=== PATIENT | female | born 1940 | race Caucasian/White ===

== ENCOUNTER 2024-09-26 05:52 | Inpatient (IN) | payer MEDICARE, OTHER ==
[2024-09-26] VITALS (22 sets, daily range): BP systolic 111–171; BP diastolic 55–102; TEMP 98.3–98.5; O2SAT 95–100
[~2024-09-26] VITALS: Ht 160 cm; Wt 82.6 kg
[~2024-09-26 05:52] MED LIST: AZIT250T13 PO; PRED20TA PO
[2024-09-26] MEDS: DILTIAZEM HCL 50 MG IV IV ONE (06:00)
[2024-09-26] MEDS: IPRATROPIUM NEB FS 0.5 MG/2.5 ML AMPUL.NEB NEB ONE (06:25)
[2024-09-26] MEDS: ALBUTEROL FS 2.5 MG/3 ML VIAL.NEB CONTNEB ONE (06:25)
[2024-09-26] MEDS ORDERED: methylPREDNISolone SOD SUCC 125 MG/2ML VIAL ONE (06:26)
[2024-09-26] MEDS ORDERED: DILTIAZEM HCL 50 MG IV ONE (06:26)
[2024-09-26] MEDS ORDERED: ALBUTEROL FS 2.5 MG/3 ML VIAL.NEB ONE (06:27)
[2024-09-26] MEDS ORDERED: IPRATROPIUM NEB FS 0.5 MG/2.5 ML AMPUL.NEB ONE (06:27)
[2024-09-26] MEDS: methylPREDNISolone SOD SUCC 125 MG/2ML VIAL IV ONE (06:34)
[2024-09-26 06:38] LABS: BASOPHILS % (AUTO) 0.2 % (0.0-2.0); HEMATOCRIT 38 % (33-45); HEMOGLOBIN 12.6 g/dL (11.5-14.8); LYMPHOCYTES # (AUTO) 1.6 K/uL (0.8-4.8); LYMPHOCYTES % (AUTO) 12.3 % (20.0-44.0); MEAN CORPUSCULAR HEMOGLOBIN 30 PG (26.0-33.0); MEAN CORPUSCULAR HGB CONC 33 g/dl (31.0-36.0); MEAN CORPUSCULAR VOLUME 90 fL (82-100); MONOCYTES # (AUTO) 0.9 K/uL (0.1-1.30); MONOCYTES % (AUTO) 7.2 % (2.0-12.0); NEUTROPHILS # (AUTO) 10.7 K/uL (1.8-8.9); NEUTROPHILS % (AUTO) 80.3 % (43.0-81.0); PLATELET COUNT (AUTO) 284 K/uL (150-450); RED BLOOD CELL COUNT(AUTO) 4.25 MIL/uL (4.0-5.2); RED CELL DISTRIBUTION WIDTH 14.1 % (11.5-15.0); WHITE BLOOD COUNT (AUTO) 13.3 K/uL (4.3-11.0)
[2024-09-26 06:42] LABS: ABG BASE EXCESS 0.7 mmol/L (-2.0-3.0); ABG OXYGEN SATURATION 99.4 % (94.0-98.0); ABG PCO2 37.1 mmHg (32.0-45.0); ABG PO2 306.5 mmHg (83.0-108.0); ABG TOTAL HEMOGLOBIN 12.4 G/dL (12.0-16.0); COHb 0.2 % (0.5-1.5); MetHb 0.2 % (0.0-1.5); SITE, ABG RIGHT RADIAL
[2024-09-26 06:47] LABS: CALCIUM, SERUM 9.1 mg/dL (8.5-10.1); CARBON DIOXIDE 27 mmol/L (21-32); CHLORIDE 98 mmol/L (98-107); GLUCOSE 133 mg/dL (74-106); POTASSIUM 4.1 mmol/L (3.5-5.1); SODIUM SERUM 135 mmol/L (136-145); UREA NITROGEN, BLOOD 23 mg/dL (7-18)
[2024-09-26 06:53] LABS: ALANINE AMINOTRANSFERASE 35 U/L (12-78); ALBUMIN 4.2 g/dL (3.4-5.0); ALKALINE PHOSPHATASE 76 U/L (46-116); ASPARTATE AMINOTRANSFERASE 52 U/L (15-37); BILIRUBIN,DIRECT 0.3 mg/dL (0.0-0.2); BILIRUBIN,TOTAL 0.7 mg/dL (0.2-1.0); TOTAL PROTEIN, SERUM 9.3 g/dL (6.4-8.2)
[2024-09-26 06:55] LABS: LACTIC ACID 1.8 mmol/L (0.4-2.0)
[2024-09-26] MEDS: OSELTAMIVIR PHOSPHATE 75 MG CAPSULE PO ONE (07:30)
[2024-09-26] MEDS: DILTIAZEM HCL IV 125 MG in IV NS 0.9% 100 ML IV PRN ×2 (07:55→11:03)
[2024-09-26] MEDS ORDERED: ONDANSETRON HCL/PF 4 MG/2 ML VIAL IVP PRN (08:30)
[2024-09-26] MEDS ORDERED: MAGNESIUM HYDROXIDE 30 ML UDC PO PRN (08:30)
[2024-09-26] MEDS ORDERED: MAG HYDROX/AL HYDROX/SIMETH 30 ML UDC PO PRN (08:30)
[2024-09-26] MEDS ORDERED: ZOLPIDEM TARTRATE 5 MG TABLET PO PRN (08:30)
[2024-09-26] MEDS ORDERED: ACETAMINOPHEN 325 MG TABLET PO PRN (08:30)
[2024-09-26] MEDS ORDERED: Z GUARD REMEDY 4 OZ OINT TP PRN (08:30)
[2024-09-26] MEDS ORDERED: BENZ200C53 PO (08:51)
[2024-09-26] MEDS ORDERED: DILT-2 PO (08:51)
[2024-09-26] MEDS ORDERED: BISO5TAB20 PO (08:51)
[2024-09-26] MEDS ORDERED: POTA8TAB3 PO (08:51)
[2024-09-26] MEDS ORDERED: FURO40TA5 PO (08:51)
[2024-09-26] MEDS ORDERED: APIX5TAB PO (08:51)
[2024-09-26] MEDS: OSELTAMIVIR PHOSPHATE 75 MG CAPSULE PO SCH (10:29)
[2024-09-26] MEDS: methylPREDNISolone SOD SUCC 40 MG/ML VIAL IV SCH (10:32)
[2024-09-26] MEDS: ENOXAPARIN SODIUM 40 MG/0.4 ML DISP.SYRIN SQ SCH (10:33)
[2024-09-26] MEDS: FUROSEMIDE 40 MG/4 ML VIAL IV ONE (11:10)
[2024-09-26] MEDS ORDERED: ALBUTEROL FS 2.5 MG/3 ML VIAL.NEB NEB SCH (11:30)
[2024-09-26] MEDS ORDERED: DILTIAZEM HCL IV 125 MG in IV NS 0.9% 100 ML IV PRN (12:00)
[2024-09-26] MEDS ORDERED: predniSONE 20 MG TABLET PO SCH ×2 (12:00→17:00)
[2024-09-26] MEDS: IV NS 0.9% 1,000 ML IV PRN (12:55)
[2024-09-26] MEDS: DILTIAZEM HCL CD 120 MG PO SCH (15:13)
[2024-09-26] MEDS: APIXABAN 5 MG TABLET PO SCH (17:37)
[2024-09-26] MEDS: IPRATROPIUM NEB FS 0.5 MG/2.5 ML AMPUL.NEB NEB SCH (20:07)
[2024-09-27] VITALS (15 sets, daily range): BP systolic 134–157; BP diastolic 75–118; TEMP 97.7–98.9; O2SAT 96–100
[2024-09-27 03:55] LABS: HEMATOCRIT 32 % (33-45); HEMOGLOBIN 10.8 g/dL (11.5-14.8); LYMPHOCYTES # (AUTO) 0.6 K/uL (0.8-4.8); LYMPHOCYTES % (AUTO) 14.2 % (20.0-44.0); MEAN CORPUSCULAR HEMOGLOBIN 30 PG (26.0-33.0); MEAN CORPUSCULAR HGB CONC 34 g/dl (31.0-36.0); MEAN CORPUSCULAR VOLUME 90 fL (82-100); MONOCYTES # (AUTO) 0.2 K/uL (0.1-1.30); MONOCYTES % (AUTO) 4.1 % (2.0-12.0); NEUTROPHILS # (AUTO) 3.2 K/uL (1.8-8.9); NEUTROPHILS % (AUTO) 81.7 % (43.0-81.0); PLATELET COUNT (AUTO) 166 K/uL (150-450); RED BLOOD CELL COUNT(AUTO) 3.55 MIL/uL (4.0-5.2); RED CELL DISTRIBUTION WIDTH 13.8 % (11.5-15.0); WHITE BLOOD COUNT (AUTO) 3.9 K/uL (4.3-11.0)
[2024-09-27 04:00] LABS: CALCIUM, SERUM 7.8 mg/dL (8.5-10.1); CARBON DIOXIDE 29 mmol/L (21-32); CHLORIDE 104 mmol/L (98-107); CREATININE 0.6 mg/dL (0.6-1.3); GLUCOSE 149 mg/dL (74-106); PHOSPHORUS 3.5 mg/dL (2.5-4.9); POTASSIUM 3.3 mmol/L (3.5-5.1); SODIUM SERUM 139 mmol/L (136-145); UREA NITROGEN, BLOOD 21 mg/dL (7-18)
[2024-09-27] MEDS: POTASSIUM CHLORIDE 20 MEQ TAB.PRT.SR PO ONE (08:22)
[2024-09-27] MEDS: ATENOLOL 25 MG TABLET PO SCH (08:23)
[2024-09-27] MEDS: PANTOPRAZOLE 40 MG TABLET.DR PO SCH (08:23)
[2024-09-27] MEDS ORDERED: methylPREDNISolone SOD SUCC 40 MG/ML VIAL IV SCH (10:00)
[2024-09-27] MEDS: methylPREDNISolone SOD SUCC 40 MG/ML VIAL IV SCH (21:04)
[2024-09-27] MEDS: APIXABAN 5 MG TABLET PO SCH (21:10)
[2024-09-28] VITALS: BP 138/69; TEMP 97.7; O2SAT 98
[2024-09-28 04:00] VITALS: BP 151/77; TEMP 98.2; O2SAT 97
[2024-09-28 07:30] VITALS: BP 134/92; TEMP 98.2; O2SAT 98
[2024-09-28 07:57] LABS: BASOPHILS % (AUTO) 0.1 % (0.0-2.0); HEMATOCRIT 32 % (33-45); HEMOGLOBIN 10.8 g/dL (11.5-14.8); LYMPHOCYTES # (AUTO) 0.8 K/uL (0.8-4.8); LYMPHOCYTES % (AUTO) 9.2 % (20.0-44.0); MEAN CORPUSCULAR HEMOGLOBIN 30 PG (26.0-33.0); MEAN CORPUSCULAR HGB CONC 34 g/dl (31.0-36.0); MEAN CORPUSCULAR VOLUME 89 fL (82-100); MONOCYTES # (AUTO) 0.4 K/uL (0.1-1.30); MONOCYTES % (AUTO) 5.1 % (2.0-12.0); NEUTROPHILS % (AUTO) 85.6 % (43.0-81.0); PLATELET COUNT (AUTO) 193 K/uL (150-450); RED BLOOD CELL COUNT(AUTO) 3.64 MIL/uL (4.0-5.2); RED CELL DISTRIBUTION WIDTH 13.2 % (11.5-15.0); WHITE BLOOD COUNT (AUTO) 8.1 K/uL (4.3-11.0)
[2024-09-28 08:16] LABS: CALCIUM, SERUM 8.1 mg/dL (8.5-10.1); CREATININE 0.7 mg/dL (0.6-1.3); MAGNESIUM 2.1 mg/dL (1.8-2.4); PHOSPHORUS 2.9 mg/dL (2.5-4.9); POTASSIUM 3.5 mmol/L (3.5-5.1)
[2024-09-28 09:00] VITALS: BP 134/92
[2024-09-28 11:07] LABS: *SPE A/G RATIO 0.7 (0.7-1.7); *SPE ALBUMIN 3.1 g/dL (2.9-4.4); *SPE ALPHA-1-GLOBULIN 0.4 g/dL (0.0-0.4); *SPE ALPHA-2-GLOBULIN 0.9 g/dL (0.4-1.0); *SPE BETA GLOBULIN 1.3 g/dL (0.7-1.3); *SPE GLOBULIN, TOTAL 4.3 g/dL (2.2-3.9); *SPE M-SPIKE Not Observed g/dL (Not Observed); *SPE PROTEIN TOTAL 7.4 g/dL (6.0-8.5); *SPEGAMMA GLOBULIN 1.6 g/dL (0.4-1.8)
[2024-09-28] MEDS ORDERED: METH4TAB17 PO (12:10)
[2024-09-28] MEDS ORDERED: BUDE10.2 INH (12:10)
== END 2024-09-28 13:10 | disposition home health service (06) | DRG 280 ==
LOC: ER 06:00 → ICU 08:32 → TELE 09-27 14:15
PROVIDERS: ADMIT Student in an Organized Health Care Education/Training Program; ATTEND Student in an Organized Health Care Education/Training Program
DX: I48.20 Chronic atrial fibrillation, unspecified (principal); J96.01 Acute respiratory failure with hypoxia; I21.A1 Myocardial infarction type 2; D68.59 Other primary thrombophilia; I50.32 Chronic diastolic (congestive) heart failure; J10.1 Influenza due to other identified influenza virus with other respiratory manifestations; E66.9 Obesity, unspecified; I11.0 Hypertensive heart disease with heart failure; K59.00 Constipation, unspecified; Z68.32 Body mass index [BMI] 32.0-32.9, adult; E87.6 Hypokalemia; Z20.822 Contact with and (suspected) exposure to COVID-19
CPT/HCPCS: 36415; 36600; 71045-TC; 80048-TC; 80076-TC; 82803-TC; 82962-TC; 83605-TC; 83735-TC; 84100-TC; 84155; 84165; 84443-TC; 84484-TC; 85025-TC; 85378-TC; 87040-TC; 87081-TC; 93307-TC; 94799-TC; 97110-TC; 97116-TC; 97530-TC; A4223; G0378; J1650; J1940; J2919; J3490; J7030